=== PATIENT | female | born 2000 | race Caucasian/White ===

== ENCOUNTER → 2024-07-23 15:04 | Outpatient (REF) | payer OTHER, SELFPAY | LOC: RAD 15:04 | PROVIDERS: ATTENDING PHYSICIAN Student in an Organized Health Care Education/Training Program; FAMILY PHYSICIAN Physician Assistant | DX: R94.31 Abnormal electrocardiogram [ECG] [EKG] (principal); R07.81 Pleurodynia | CPT/HCPCS: 93970 ==

== ENCOUNTER → 2024-08-01 15:49 | Outpatient (REF) | payer OTHER, SELFPAY | LOC: RCS 15:49 | PROVIDERS: ATTENDING PHYSICIAN Student in an Organized Health Care Education/Training Program; FAMILY PHYSICIAN Physician Assistant | DX: R94.31 Abnormal electrocardiogram [ECG] [EKG] (principal); R07.81 Pleurodynia | CPT/HCPCS: 93306 ==